=== PATIENT | male | born 1935 | race Caucasian/White ===

== ENCOUNTER 2019-01-13 08:57 | Day surgery (SDC) | payer MEDICARE ==
[~2019-01-13] VITALS: Ht 188 cm; Wt 82.5 kg
[2019-01-13 09:21] VITALS: BP 145/76
[2019-01-13] MEDS ORDERED: normal saline 1000ml 1,000 ML IV PRN (09:25)
[2019-01-13 09:56] LABS: BASOPHILS % (AUTO) 0.7 % (0-1); EOSINOPHILS # (AUTO) 0.2 X10'3 (0-0.9); EOSINOPHILS % (AUTO) 2.6 % (0-6); HEMATOCRIT 36.6 % (42.0-52.0); HEMOGLOBIN 12.1 g/dl (14.0-17.9); LYMPHOCYTES # (AUTO) 1.4 X10'3 (1.1-4.8); LYMPHOCYTES % (AUTO) 22.2 % (21-51); MEAN CORPUSCULAR HEMOGLOBIN 29.1 PG (27.0-31.0); MEAN CORPUSCULAR HGB CONC 33.2 g/dL (33.0-36.5); MEAN CORPUSCULAR VOLUME 87.7 FL (78-98); MONOCYTES # (AUTO) 0.8 X10'3 (0-0.9); MONOCYTES % (AUTO) 12.5 % (2-12); PLATELET COUNT 203 X10'3 (140-440); RED BLOOD COUNT 4.17 X10'6 (4.70-6.10); RED CELL DISTRIBUTION WIDTH 13.5 % (11.5-14.5); WHITE BLOOD COUNT 6.4 X10'3 (4.5-11.0)
[2019-01-13 10:09] LABS: ALBUMIN 2.9 G/DL (3.4-5.0); ANION GAP 7 (8-16); BLOOD UREA NITROGEN 14 MG/DL (7-18); BUN/CREATININE RATIO 14.4 (5.4-32.0); CALCIUM 8.8 MG/DL (8.5-10.1); CHLORIDE 103 MMOL/L (99-107); CREATININE 0.97 MG/DL (0.60-1.10); GLUCOSE 103 MG/DL (70-104); POTASSIUM 3.5 MMOL/L (3.5-5.1); SODIUM 140 MMOL/L (135-145); TOTAL CARBON DIOXIDE 29.7 MMOL/L (24-32); eGFR 74 ML/MIN
[2019-01-13] MEDS ORDERED: LORA1TAB PO (10:31)
[2019-01-13] MEDS ORDERED: ZOLP5TAB8 PO (10:31)
[2019-01-13] MEDS ORDERED: FAMO20TA8 PO (10:31)
[2019-01-13] MEDS ORDERED: CHOL100044 PO (10:31)
[2019-01-13] MEDS ORDERED: ATOR40TA71 PO (10:31)
[2019-01-13] MEDS ORDERED: HYDR12.55 PO (10:31)
[2019-01-13] MEDS ORDERED: ATRNS (10:31)
[2019-01-13] MEDS ORDERED: ASPI-1265 PO (10:31)
[2019-01-13] MEDS ORDERED: AMLO2.5T2 PO (10:31)
[2019-01-13] MEDS ORDERED: CARB200T8 PO (10:31)
[2019-01-13] MEDS ORDERED: FISH12002 PO (10:31)
[2019-01-13] MEDS ORDERED: LIDOcaine 1%/PF 5ML 10 MG/ML VIAL SQ ONE (10:55)
[2019-01-13] MEDS ORDERED: fentaNYL/PF 50MCG/1 ML 2ML syringe IV PRN (10:55)
[2019-01-13] MEDS ORDERED: midazolam 2 mg/2 ml injection IV PRN (10:55)
[2019-01-13] MEDS ORDERED: heparin sodium, porcine/PF 100unit/ml 5ML syringe ICATH ONE (10:55)
[2019-01-13] MEDS ORDERED: LIDOcaine 1%/PF 5ML 10 MG/ML VIAL ONE (10:59)
[2019-01-13] MEDS ORDERED: heparin sodium, porcine/PF 100unit/ml 5ML syringe ONE (11:03)
[2019-01-13] MEDS ORDERED: fentaNYL/PF 50MCG/1 ML 2ML syringe ONE (11:03)
[2019-01-13] MEDS ORDERED: midazolam 2 mg/2 ml injection ONE (11:03)
[2019-01-13] MEDS ORDERED: normal saline 1000ml 1,000 ML IV SCH (11:36)
[2019-01-13 12:19] VITALS: BP 139/74
[2019-01-13 12:30] VITALS: BP 144/66
[2019-01-13 12:43] VITALS: BP 145/71
[2019-01-13 13:02] VITALS: BP 121/80
[2019-01-13 13:15] VITALS: BP 131/76
== END 2019-01-13 13:45 | disposition home or self-care (01) ==
LOC: SSTAY O 08:57
PROVIDERS: ATTEND Radiology Diagnostic Radiology
DX: Z45.2 Encounter for adjustment and management of vascular access device (principal); C34.91 Malignant neoplasm of unspecified part of right bronchus or lung; I25.10 Atherosclerotic heart disease of native coronary artery without angina pectoris; I10 Essential (primary) hypertension; E78.5 Hyperlipidemia, unspecified; Z98.890 Other specified postprocedural states; Z87.891 Personal history of nicotine dependence; Z95.1 Presence of aortocoronary bypass graft; Z98.42 Cataract extraction status, left eye; Z98.41 Cataract extraction status, right eye; Z79.82 Long term (current) use of aspirin; Z96.1 Presence of intraocular lens
CPT/HCPCS: 36415; 36561; 76937; 77001; 80048; 85025; 99152; 99153; J1642; J2001; J2250; J3010; J7030; A6219; C1788; C1894